=== PATIENT | male | born 1975 | race African-American/Black ===

== ENCOUNTER 2017-08-01 08:14 | Emergency (ER) | payer OTHER ==
[~2017-08-01] VITALS: Ht 185.4 cm; Wt 85.5 kg
[~2017-08-01 08:14] MED LIST: ATRIPLA TABLET1 EACH PO; DEPAKOTE250 MG PO; SEROQUEL100 MG PO; SEROQUEL50 MG PO; WELLBUTRIN SR150 MG PO
[2017-08-01 11:16] VITALS: BP 124/75
== END 2017-08-01 11:21 | disposition home or self-care (01) ==
LOC: EME 08:14
DX: J06.9 Acute upper respiratory infection, unspecified (principal); B20 Human immunodeficiency virus [HIV] disease; B19.10 Unspecified viral hepatitis B without hepatic coma; F31.9 Bipolar disorder, unspecified; F32.9 Major depressive disorder, single episode, unspecified; F41.9 Anxiety disorder, unspecified; Z72.0 Tobacco use
CPT/HCPCS: 99281; 99283

== ENCOUNTER 2018-03-30 06:45 | Emergency (ER) | payer OTHER ==
[~2018-03-30] VITALS: Ht 185.4 cm; Wt 85.1 kg
[2018-03-30 07:17] LABS: HEMATOCRIT 43.4 % (38.0-50.0); HEMOGLOBIN 15.5 G/DL (12.5-16.6); MCH 31.8 PG (29.0-34.0); MCHC 35.7 G/DL (30.0-36.0); MCV 89.1 FL (86-99); RBC DIS.WIDTH-CV 12.4 % (11.8-14.6); RBC DIS.WIDTH-SD 40.5 % (39-53); RED BLOOD COUNT 4.87 M/uL (4.00-5.50); WHITE BLOOD COUNT 5.5 K/uL (4.1-10.2)
[2018-03-30 07:45] LABS: ALBUMIN 4.2 G/DL (3.2-4.8); ALKALINE PHOSPHATASE 75 IU/L (3-129); ALT (GPT) 17 IU/L (3-49); AST (GOT) 24 IU/L (2-34); CHLORIDE 104 MEQ/L (99-109); CREATININE 1.1 MG/DL (0.6-1.3); GFR ESTIMATE (CALCULATED) > 59 mL/min/ (58.99-99999); GLUCOSE 71 mg/dL (70-99); LIPASE 27 U/L (1.0-51.0); SODIUM 138 MEQ/L (136-147); TOTAL BILIRUBIN 0.4 MG/DL (0.0-1.0); TOTAL PROTEIN 7.8 G/DL (6.4-8.3); UREA NITROGEN (BUN) 13 mg/dL (9-23)
[2018-03-30 07:54] LABS: PLATELET CLUMPS PRESENT - PLATELET COUNT APPEARS ADEQUATE; PLATELET COUNT UNABLE TO REPORT K/uL (156-360)
[2018-03-30 08:47] LABS: APPEARANCE CLEAR ((CLEAR)); BILIRUBIN NEGATIVE; BLOOD NEGATIVE; COLOR YELLOW ((YELLOW)); GLUCOSE (STRIP) NEGATIVE; KETONES NEGATIVE; LEUKOCYTES NEGATIVE; NITRITE NEGATIVE; PROTEIN (STRIP) NEGATIVE; SPECIFIC GRAVITY 1.011 (1.000-1.030); UCUL ADDED? NO; UROBILINOGEN 0.2 MG/DL (0.2-1.0)
[2018-03-30] MEDS ORDERED: NAPROXEN500 MG PO (09:26)
[2018-03-30 09:39] VITALS: BP 113/75
== END 2018-03-30 09:40 | disposition home or self-care (01) ==
LOC: EME 06:45
PROVIDERS: Physician Assistant
DX: R10.9 Unspecified abdominal pain (principal); Z21 Asymptomatic human immunodeficiency virus [HIV] infection status; Z87.442 Personal history of urinary calculi; F32.9 Major depressive disorder, single episode, unspecified; F41.9 Anxiety disorder, unspecified
CPT/HCPCS: 74176; 80053; 81003; 83690; 85027; J1885; J2405

== ENCOUNTER 2018-04-10 14:45 | Emergency (ER) | payer OTHER ==
[~2018-04-10] VITALS: Ht 185.4 cm; Wt 81.6 kg
[~2018-04-10 14:45] MED LIST changes: +NAPROXEN500 MG PO
[2018-04-10 16:54] VITALS: BP 122/87
== END 2018-04-10 16:54 | disposition home or self-care (01) ==
LOC: EME 14:45
DX: B34.9 Viral infection, unspecified (principal); J06.9 Acute upper respiratory infection, unspecified; J02.9 Acute pharyngitis, unspecified; R11.2 Nausea with vomiting, unspecified; R51 Headache; Z21 Asymptomatic human immunodeficiency virus [HIV] infection status; Z86.19 Personal history of other infectious and parasitic diseases
CPT/HCPCS: 87651 90; 99281; 99283